=== PATIENT | female | born 1950 | race Caucasian/White ===

== ENCOUNTER 2016-05-27 14:48 | Inpatient (IN) | payer MEDICARE, OTHER ==
[~2016-05-27 14:48] MED LIST: BENADRYL 25MG C25 MG PO; FERROUS SULFAT325 M2 PO; FLEXERIL 10 MG10 MG PO; GABAPENTIN300 MG PO; K-DUR TAB 10 M10 MEQ PO; LANTUS100 UNIT/1 SQ; LASIX40 MG PO; LEVAQUIN750 MG PO; LEVOTHYROXINE50 MCG PO; LOPRESSOR 50 MG50 MG PO; MIRALAX17 GM PO; MULTIVITAMINS1 EAC1 PO; NITROSTAT 0.40.4 MG SL; PROTONIX40 MG PO; PROZAC40 MG PO; SIMVASTATIN40 MG PO; SPRYCEL50 MG PO; TYLENOL 325MG325 MG PO; ULORIC 40 MG TA40 MG PO; ULTRAM50 MG PO
[2016-05-28 01:17] LABS: HEMOGLOBIN 9.2 gm/dl (12.3-15.3); RED BLOOD COUNT 3.13 M/UL (4.00-5.10); WHITE BLOOD COUNT 3.4 K/UL (4.5-11.0)
[2016-05-28 06:30] LABS: HEMOGLOBIN 9.1 gm/dl (12.3-15.3); RED BLOOD COUNT 3.1 M/UL (4.00-5.10); WHITE BLOOD COUNT 3.6 K/UL (4.5-11.0)
[2016-05-29 04:33] LABS: HEMOGLOBIN 9.5 gm/dl (12.3-15.3); RED BLOOD COUNT 3.25 M/UL (4.00-5.10)
[2016-05-29 04:37] LABS: WHITE BLOOD COUNT 5.8 K/UL (4.5-11.0)
[2016-05-30 04:20] LABS: HEMOGLOBIN 10.4 gm/dl (12.3-15.3); RED BLOOD COUNT 3.53 M/UL (4.00-5.10); WHITE BLOOD COUNT 9.2 K/UL (4.5-11.0)
[2016-05-31 03:31] LABS: HEMOGLOBIN 9.3 gm/dl (12.3-15.3); RED BLOOD COUNT 3.19 M/UL (4.00-5.10)
[2016-05-31 03:33] LABS: WHITE BLOOD COUNT 6.1 K/UL (4.5-11.0)
[2016-06-01 03:48] LABS: HEMOGLOBIN 9.1 gm/dl (12.3-15.3); RED BLOOD COUNT 3.12 M/UL (4.00-5.10); WHITE BLOOD COUNT 5.6 K/UL (4.5-11.0)
--- NOTE | 2016-06-02 12:28 | NUR ---
SPOKEN WITH DR. GABRIEL REPORTED PATIENT INCREASE HEART RATE, CHEST PAIN EPISODE, NITRO GIVEN X 1 WITH NO CHEST PAIN REPORTED AFTERWARDS, RESPIRATORY SOUNDS. RECEVIED ORDER AND VERB WILL SEE PATIENT
[2016-06-04 05:19] LABS: HEMOGLOBIN 10.5 gm/dl (12.3-15.3); RED BLOOD COUNT 3.56 M/UL (4.00-5.10)
== END 2016-06-05 19:00 | DRG 291 ==
LOC: PROG CARE 14:48 → M/S 22:08 → PROG CARE 22:08 → M/S 06-01 09:30
PROVIDERS: Hospitalist; Internal Medicine; Internal Medicine Infectious Disease; Internal Medicine Nephrology; ADMIT Internal Medicine
DX: I13.0 Hypertensive heart and chronic kidney disease with heart failure and stage 1 through stage 4 chronic kidney disease, or unspecified chronic kidney disease (principal); J96.00 Acute respiratory failure, unspecified whether with hypoxia or hypercapnia; I50.33 Acute on chronic diastolic (congestive) heart failure; N17.9 Acute kidney failure, unspecified; C92.10 Chronic myeloid leukemia, BCR/ABL-positive, not having achieved remission; D61.818 Other pancytopenia; N30.00 Acute cystitis without hematuria; I47.1 Supraventricular tachycardia; E66.2 Morbid (severe) obesity with alveolar hypoventilation; Z68.42 Body mass index [BMI] 45.0-49.9, adult; J96.11 Chronic respiratory failure with hypoxia; I07.1 Rheumatic tricuspid insufficiency; B37.2 Candidiasis of skin and nail; F50.89 Other specified eating disorder; T45.1X5A Adverse effect of antineoplastic and immunosuppressive drugs, initial encounter; I27.2 Other secondary pulmonary hypertension; Y92.009 Unspecified place in unspecified non-institutional (private) residence as the place of occurrence of the external cause; I48.0 Paroxysmal atrial fibrillation; E78.5 Hyperlipidemia, unspecified; R53.81 Other malaise; G47.33 Obstructive sleep apnea (adult) (pediatric); E11.21 Type 2 diabetes mellitus with diabetic nephropathy; N18.3 Chronic kidney disease, stage 3 (moderate); Z79.4 Long term (current) use of insulin; Z79.899 Other long term (current) drug therapy; Z88.8 Allergy status to other drugs, medicaments and biological substances; Z88.6 Allergy status to analgesic agent; Z88.5 Allergy status to narcotic agent; Z91.040 Latex allergy status; Z79.1 Long term (current) use of non-steroidal anti-inflammatories (NSAID); Z28.21 Immunization not carried out because of patient refusal; Z99.81 Dependence on supplemental oxygen; D63.0 Anemia in neoplastic disease; Z82.3 Family history of stroke; G25.3 Myoclonus; K74.60 Unspecified cirrhosis of liver; F41.9 Anxiety disorder, unspecified
CPT/HCPCS: 36415; 71010; 80048; 80053; 81001; 82550; 82553; 82607; 82728; 82746; 82962; 83540; 83550; 83735; 83880; 84484; 85025; 85027; 85610; 85730; 87040; 87070; 87086; 87205; 93005; 94640; 94664; 97110; 97530; J0696; J1644; J2060; J2405; Q4081